=== PATIENT | female | born 1990 | race Asian ===

== ENCOUNTER 2022-01-25 11:22 | Emergency (ER) | payer OTHER ==
[~2022-01-25] VITALS: Ht 160 cm; Wt 59.0 kg
[2022-01-25 12:22] LABS: HEMATOCRIT 46.3 % (36.0-47.0); HEMOGLOBIN 15.7 g/dl (12.0-15.5); MEAN CORPUSCULAR HEMOGLOBIN 31.5 pg (27.0-33.0); MEAN CORPUSCULAR HGB CONC 33.9 g/dl (32.0-36.5); MEAN CORPUSCULAR VOLUME 92.8 fl (80.0-96.0); PLATELET COUNT, AUTOMATED 284 10^3/uL (150-450); RED BLOOD COUNT 4.99 10^6/uL (4.00-5.40); WHITE BLOOD COUNT 7.4 10^3/uL (4.0-10.0)
[2022-01-25 12:43] LABS: HCG, SERUM QUALITATIVE NEGATIVE (NEGATIVE)
[2022-01-25 12:48] LABS: ACETAMINOPHEN LEVEL < 2.0 UG/ML (10.0-30.0); ALBUMIN 4.6 GM/DL (3.2-5.2); ALT/SGPT 25 U/L (12-78); BILIRUBIN,DIRECT 0.2 MG/DL (0.0-0.2); BILIRUBIN,TOTAL 0.7 MG/DL (0.2-1.0); BLOOD UREA NITROGEN 11 MG/DL (7-18); CALCIUM LEVEL 9.7 MG/DL (8.5-10.1); CARBON DIOXIDE LEVEL 25 MEQ/L (21-32); CHLORIDE LEVEL 106 MEQ/L (98-107); CREATININE FOR GFR 0.83 MG/DL (0.55-1.30); ETHYL ALCOHOL (ETHANOL) < 0.003 % (0.000-0.010); GLOMERULAR FILTRATION RATE > 60.0 (>60); GLUCOSE, FASTING 84 MG/DL (70-100); POTASSIUM SERUM 3.6 MEQ/L (3.5-5.1); SALICYLATE LEVEL < 1.7 MG/DL (5.0-30.0); SODIUM LEVEL 139 MEQ/L (136-145); THYROID STIMULATING HORMONE 0.971 uIU/ML (0.358-3.740); TOTAL PROTEIN 7.9 GM/DL (6.4-8.2)
[2022-01-25 13:01] LABS: RSV AMPLIFICATION NEGATIVE (NEGATIVE)
[2022-01-25 14:48] LABS: AMPHETAMINES LEVEL URINE NEGATIVE (NEGATIVE); BARBITURATES URINE NEGATIVE (NEGATIVE); BENZODIAZEPINES URINE NEGATIVE (NEGATIVE); CANNABINOIDS URINE NEGATIVE (NEGATIVE); COCAINE METABOLITE URINE NEGATIVE (NEGATIVE); METHADONE URINE NEGATIVE (NEGATIVE); OPIATES URINE NEGATIVE (NEGATIVE); PHENCYCLIDINE URINE NEGATIVE (NEGATIVE)
[2022-01-25 21:29] VITALS: BP 110/60
== END 2022-01-25 21:31 | disposition home or self-care (01) ==
LOC: EDBD 11:22 → M ED 11:22
DX: F32.9 Major depressive disorder, single episode, unspecified (principal); F17.200 Nicotine dependence, unspecified, uncomplicated; Z88.8 Allergy status to other drugs, medicaments and biological substances